=== PATIENT | male | born 1990 | race Hispanic/Latino ===

== ENCOUNTER 2024-12-04 12:45 | Outpatient (CLI) | payer OTHER, SELFPAY | END 2024-12-04 12:46 | disposition home or self-care (01) | LOC: CSHWCC 12:45 | PROVIDERS: ATTEND Nurse Practitioner Family | DX: S31.501D Unspecified open wound of unspecified external genital organs, male, subsequent encounter (principal); E11.622 Type 2 diabetes mellitus with other skin ulcer; L98.499 Non-pressure chronic ulcer of skin of other sites with unspecified severity; E66.01 Morbid (severe) obesity due to excess calories; M72.6 Necrotizing fasciitis | CPT/HCPCS: 11042; 99214; G0463 ==

== ENCOUNTER 2024-12-10 09:47 | Outpatient (CLI) | payer OTHER | END 2024-12-10 09:48 | disposition home or self-care (01) | LOC: CSHWCC 09:47 | PROVIDERS: ATTEND Nurse Practitioner Family | DX: S31.501D Unspecified open wound of unspecified external genital organs, male, subsequent encounter (principal); E11.622 Type 2 diabetes mellitus with other skin ulcer; L98.499 Non-pressure chronic ulcer of skin of other sites with unspecified severity; M72.6 Necrotizing fasciitis; E66.01 Morbid (severe) obesity due to excess calories | CPT/HCPCS: 11042 ==

== ENCOUNTER 2025-01-02 13:57 | Outpatient (CLI) | payer OTHER | END 2025-01-02 13:58 | disposition home or self-care (01) | LOC: CSHWCC 13:57 | PROVIDERS: ATTEND Nurse Practitioner Family | DX: S31.501D Unspecified open wound of unspecified external genital organs, male, subsequent encounter (principal); E11.622 Type 2 diabetes mellitus with other skin ulcer; L98.499 Non-pressure chronic ulcer of skin of other sites with unspecified severity; E66.01 Morbid (severe) obesity due to excess calories; M72.6 Necrotizing fasciitis | CPT/HCPCS: 11042 ==

== ENCOUNTER 2025-01-17 14:31 | Outpatient (CLI) | payer SELFPAY | END 2025-01-17 14:32 | disposition home or self-care (01) | LOC: CSHWCC 14:31 | PROVIDERS: ATTEND Nurse Practitioner Family | DX: S31.501D Unspecified open wound of unspecified external genital organs, male, subsequent encounter (principal); E11.622 Type 2 diabetes mellitus with other skin ulcer; L98.499 Non-pressure chronic ulcer of skin of other sites with unspecified severity; E66.01 Morbid (severe) obesity due to excess calories; M72.6 Necrotizing fasciitis | CPT/HCPCS: 11042 ==

== ENCOUNTER 2025-03-05 08:43 | Outpatient (CLI) | payer OTHER | END 2025-03-05 08:44 | disposition home or self-care (01) | LOC: CSHSLEEP 08:43 | PROVIDERS: ATTEND Family Medicine | DX: G47.9 Sleep disorder, unspecified (principal); R53.83 Other fatigue; E66.9 Obesity, unspecified; Z68.43 Body mass index [BMI] 50.0-59.9, adult; G47.33 Obstructive sleep apnea (adult) (pediatric) | CPT/HCPCS: 95800 ==